=== PATIENT | female | born 1950 | race Asian ===

== ENCOUNTER 2017-11-23 09:02 | Emergency (ER) | payer MEDICARE, OTHER, SELFPAY ==
[2017-11-23] VITALS (10 sets, daily range): BP systolic 119–178; BP diastolic 53–86; PULSE 62–102; RESP 12–20; TEMP 36.6; O2SAT 92–100; BMI 27.2
[2017-11-23 10:03] LABS: Add Manual Diff / Slide Review NO; Eosinophils Percent Auto 5.7 % (2-4); Hematocrit 34.6 % (36-46); Hemoglobin 11.7 g/dL (12.0-16.0); Lymphocytes Percent Auto 21.8 % (25-40); Mean Corpuscular HGB Conc 33.7 % (30-36); Mean Corpuscular Hemoglobin 29.7 PG (26-34); Mean Corpuscular Volume 88.2 fL (80-100); Monocytes Percent Auto 5.9 % (3-14); Neutrophils Absolute Auto 6900 /uL (3000-5900); Neutrophils Percent Auto 65.6 % (50-75); Platelet Count 241 X10^3/uL (150-400); Red Blood Cell Count 3.93 X10^6/uL (4.0-5.2); Red Cell Distribution Width 13.1 % (11.6-14.8); White Blood Cell Count 10.5 X10^3/uL (4.5-11.0)
[2017-11-23 10:12] LABS: Alanine Aminotransferase 19 IU/L (9-52); Albumin 4.4 g/dL (3.5-5.0); Albumin Globulin Ratio 1.2 (1.0-2.8); Alkaline Phosphatase 71 U/L (38-126); Aspartate Aminotransferase 16 IU/L (14-36); BUN Creatinine Ratio 15.7 (6-22); Bilirubin Total 0.4 mg/dL (0.2-1.3); Blood Urea Nitrogen 33 mg/dL (7-17); Calcium 9.7 mg/dL (8.4-10.2); Carbon Dioxide 14 mmol/L (22-32); Chloride 114 mmol/L (98-107); Estimated Glomerular Filt Rate 23.4 mL/min (>60); Globulin 3.6 g/dL (1.7-4.1); Glucose 136 mg/dL (80-110); HEMOLYSIS < 15 (0-50); Lipase 558 U/L (23-300); Sodium 142 mmol/L (137-145)
[2017-11-23] MEDS: SODIUM CHLORIDE 0.9% 1,000 ML 150 ML IV (10:15)
[2017-11-23 10:24] LABS: Potassium 6.5 mmol/L (3.4-5.1)
--- NOTE | 2017-11-23 11:05 | DI.US.S_ITS ---
PROCEDURE: US ABDOMEN COMPLETE INDICATIONS: 67 year-old female with elevated lipase level, abdominal pain and nausea. TECHNIQUE: Real-time scanning was performed of the abdominal and retroperitoneal organs, with image documentation. COMPARISON: None. FINDINGS: Liver: Liver is normal in size and homogeneous in echotexture. Gallbladder: No gallstones or biliary sludge. Gallbladder wall thickness is normal. No pericholecystic fluid. Sonographic Banks's sign is present. Biliary ducts: Intrahepatic bile ducts are non-dilated. Extrahepatic bile duct caliber measures 6 mm. Normal is 6-7 mm or less in diameter, or 10 mm or less post-cholecystectomy. Pancreas: Visualized portions of the pancreas are sonographically normal. Spleen: Spleen is normal in size and homogeneous in echotexture. Kidneys: Kidneys are normal in size and echotexture. Right kidney measures 8.6 cm long; left kidney measures 7.9 cm long. No hydronephrosis or nephrolithiasis. No solid masses. Aorta: Visualized aorta is normal in caliber at less than 3 cm. Iliacs: Proximal common iliac arteries are normal in caliber at less than 2.5 cm. IVC: Intrahepatic inferior vena cava is patent. Miscellaneous: No free abdominal fluid. IMPRESSION: 1. No gallstones or biliary ductal dilation. Sonographic Banks's sign may raise the question of acalculous cholecystitis. 2. No peripancreatic fluid collections identified in the setting of acute pancreatitis. CT scan would have higher sensitivity for pancreatic evaluation. Dictated by: Ignacio Lazar M.D. on 11/23/2017 at 13:12 Approved by: Ignacio Lazar M.D. on 11/23/2017 at 13:15
[2017-11-23] MEDS: SODIUM CHLORIDE 0.9% 1,000 ML 1000 ML IV (11:42)
[2017-11-23 13:10] LABS: BUN Creatinine Ratio 16.5 (6-22); Blood Urea Nitrogen 28 mg/dL (7-17); Calcium 8.4 mg/dL (8.4-10.2); Carbon Dioxide 14 mmol/L (22-32); Chloride 118 mmol/L (98-107); Estimated Glomerular Filt Rate 29.9 mL/min (>60); Glucose 101 mg/dL (80-110); HEMOLYSIS < 15 (0-50); Sodium 143 mmol/L (137-145)
[2017-11-23 13:17] LABS: Potassium 6.4 mmol/L (3.4-5.1)
[2017-11-23] MEDS: FUROSEMIDE 40 MG/4 ML VIAL IV (14:08)
[2017-11-23] MEDS: SODIUM POLYSTYRENE SULFON/SORB 15 GM/60 ML CUP 30 GM PO (14:08)
[2017-11-23] MEDS: ALBUTEROL 2.5 MG/3 ML NEB 10 MG INH (14:08)
--- NOTE | 2017-11-23 15:02 | ED_ITS ---
HPI - Recheck/Abnormal Lab/Rx General Chief Complaint: Recheck/Abnormal Lab/Rx Stated Complaint: Told to come in r/t abnormal lab work Time Seen by Provider: 11/23/17 09:18 Source: patient and family Mode of arrival: ambulatory Limitations: no limitations History of Present Illness HPI narrative: Patient with history of hypertension and diabetes presents to the emergency department today at the request of her primary care provider. She had been feeling slightly ill since her returned from [place] early in October and has been seen twice now in the outpatient setting. Most recently they ordered some outpatient labs which [place] [address] and a lipase elevated in the 150-200 range. The patient had been doing with some epigastric pain, change in appetite and vomiting. Upon receipt of the labs her primary sent her into the emergency department for evaluation. Today she denies any pain nor fever or chills. She is not dizzy nor weak or lightheaded. She does get some nausea when she eats. complaint: abnormal lab Initial visit (ago): week(s) Description of abnormal result: as above Related Data Home Medications Medication Instructions Recorded Confirmed aspirin [Aspirin Low Dose] 81 mg PO DAILY 11/23/17 11/23/17 felodipine 10 mg PO DAILY 11/23/17 11/23/17 hydrochlorothiazide 25 mg PO DAILY 11/23/17 11/23/17 levothyroxine [Synthroid] 112 mcg PO DAILY 11/23/17 11/23/17 losartan 100 mg PO DAILY 11/23/17 11/23/17 metformin 1,000 mg PO BID 11/23/17 11/23/17 metoprolol succinate 25 mg PO BEDTIME 11/23/17 11/23/17 metoprolol succinate 50 mg PO QAM 11/23/17 11/23/17 potassium chloride [Klor-Con 10] 10 meq PO DAILY 11/23/17 11/23/17 simvastatin 40 mg PO DAILY 11/23/17 11/23/17 spironolactone 25 mg PO BID 11/23/17 11/23/17 Allergies Allergy/AdvReac Type Severity Reaction Status Date / Time celecoxib [From Celebrex] Allergy Unknown Verified 11/23/17 09:36 AIDEN Inhibitors AdvReac Unknown Verified 11/23/17 09:36 Review of Systems Review of Systems All systems reviewed & are unremarkable except as noted in HPI and below Constitutional Denies chills, Denies fever(s), Denies lethargy and Denies weakness Eyes Denies change in vision, Denies eye discharge, Denies irritation and Denies loss of vision ENT Ears, Nose, Mouth, and Throat: Denies change in voice, Denies neck pain and Denies sore throat Cardiovascular Denies chest pain, Denies irregular heart rhythm, Denies lightheadedness, Denies palpitations, Denies dyspnea, Denies dyspnea on exertion and Denies orthopnea Respiratory Denies cough, Denies dyspnea, Denies dyspnea on exertion and Denies wheezing Gastrointestinal Gastrointestinal: Denies abdominal pain, Denies change in bowel habits, Reports heartburn, Denies diarrhea, Reports nausea and Denies vomiting Genitourinary Denies hematuria, Denies flank pain, Denies urinary incontinence and Denies urinary urgency Musculoskeletal Denies neck pain Integumentary/Breasts Denies pruritus, Denies erythema, Denies rash and Denies wounds Neurologic Denies confusion, Denies loss of vision and Denies weakness Psychiatric Denies anxiety, Denies confusion, Denies depression, Denies homicidal ideation and Denies suicidal ideation Endocrine Denies palpitations Hematologic/Lymphatic Denies easy bruising Allergic/Immunologic Denies wheezing PFSH Medical History Diabetes (Acute) High blood pressure (Acute) High cholesterol (Acute) Surgical History H/O section (Acute) Social History Smoking Status: Never smoker Exam Initial Vital Signs Initial Vital Signs: Vital Signs Temperature 97.9 F 11/23/17 09:15 Pulse Rate 99 H 11/23/17 09:15 Respiratory Rate 16 11/23/17 09:15 Blood Pressure 174/54 H 11/23/17 09:15 Pulse Oximetry 99 11/23/17 09:15 Const General: cooperative and well developed Nutritional Appearance: well nourished Orientation: alert, awake, oriented x3 and not confused [facility] Head: normocephalic and atraumatic Ears: external ears normal and TM's normal bilaterally Nose: external nose normal and No nasal discharge Face and sinus: sinuses nontender, face symmetric, no sinus tenderness and No dry mucous membranes Mouth: oral mucosae normal and moist mucous membranes Teeth and gingiva: dentition normal Throat: tonsils normal and uvula midline Eyes General: appearance normal, both eyes and all related structures Eyelids: eyelids normal Conjunctivae: conjunctivae normal Sclera: sclerae normal Pupils: PERRL EOM: EOM intact bilaterally Neck Neck: normal visual inspection, trachea midline, No lymphadenopathy, No midline deformity and No JVD Lymphatic: No lymphedema Chest Chest: normal inspection of the chest Resp Effort & Inspection: normal respiratory effort, able to speak in complete sentences, no respiratory distress and no use of accessory muscles Auscultation: clear to auscultation bilaterally, no rales, no rhonchi and no wheezes Cardio Rate: regular rate Rhythm: regular rhythm Heart Sounds: no click, no gallops, no murmurs and no rubs Pulses: normal peripheral pulses GI Inspection: non-distended Palpation: soft, no hepatosplenomegaly, No guarding, No pulsatile mass and No tender Auscultation: normal bowel sounds Back/Spine/Pelvis Back: No CVA tenderness Cervical Spine: cervical ROM normal and No pain with cervical ROM Thoracic/Lumbar Spine: thoracic and lumbar spine normal to inspection Skin General: no rashes or lesions noted, No jaundice and No petechiae Neuro General: alert, oriented x3, gait normal and no focal motor deficits Speech: speech normal Extrem General: full ROM, no clubbing, cyanosis or edema, no pedal edema and no calf tenderness Psych Appearance: well kempt Mental Status: mental status grossly normal Attitude: cooperative Thought Content: normal and suicidality Judgment: judgment good Course Orders Ordered: ED Orders 11/23/17 09:51 Complete Blood Count AUTO DIFF Stat Comprehensive Metabolic Panel Stat Lipase Stat 11/23/17 10:26 EKG-12 Lead Stat 11/23/17 11:05 US abdomen complete Stat 11/23/17 12:53 Basic Metabolic Panel Stat 11/23/17 14:53 Potassium Stat Sodium Chloride (Normal Saline 0.9%) 1,000 mls @ 150 mls/hr IV CONT SIN Last Infusion: 11/23/17 11:40 Dose: 0 mls/hr Infusion: 11/23/17 10:23 Dose: 1,000 mls/hr Admin: 11/23/17 10:15 Dose: 150 mls/hr Discontinued Medications Albuterol (Ventolin) 10 mg INH NOW ONE Stop: 11/23/17 13:49 Last Admin: 11/23/17 14:08 Dose: 10 mg Furosemide (Lasix) 40 mg IV NOW ONE Stop: 11/23/17 13:49 Last Admin: 11/23/17 14:08 Dose: 40 mg Sodium Chloride (Normal Saline 0.9%) 1,000 mls @ 1,000 mls/hr IV BOLUS ONE Stop: 11/23/17 12:40 Last Infusion: 11/23/17 12:49 Dose: 0 mls/hr Admin: 11/23/17 11:42 Dose: 1,000 mls/hr Sodium Polystyrene Sulfonate (Kayexalate) 30 gm PO NOW ONE Stop: 11/23/17 13:49 Last Admin: 11/23/17 14:08 Dose: 30 gm Reevaluation(s) Reevaluation #1: patient continues to be asymptomatic. Reevaluation #2: repeat labs after fluids note minimal change in renal function and essentially no change in K. Patient remains asymptomatic. Initiation of typical hyperK treatment. No abnormalities on EKG. Vital Signs - 8 hr 11/23/17 09:15 11/23/17 11:15 11/23/17 11:51 Temperature 97.9 F Pulse Rate 99 H 63 98 H Respiratory Rate 16 14 Blood Pressure 174/54 H Blood Pressure [Left Arm] 156/59 H 142/82 H Pulse Oximetry 99 98 99 11/23/17 11:54 11/23/17 11:57 11/23/17 11:59 Temperature Pulse Rate 102 H 76 64 Respiratory Rate 12 12 Blood Pressure Blood Pressure [Left Arm] 151/78 H 122/86 H Pulse Oximetry 100 93 11/23/17 12:02 11/23/17 13:00 11/23/17 14:15 Temperature Pulse Rate 62 69 72 Respiratory Rate 12 18 14 Blood Pressure Blood Pressure [Left Arm] 119/60 155/54 H 171/53 H Pulse Oximetry 100 99 11/23/17 15:15 Temperature Pulse Rate 102 H Respiratory Rate 20 Blood Pressure Blood Pressure [Left Arm] 178/71 H Pulse Oximetry 92 MDM - Recheck/Abnormal Lab/Rx Medical Records Attestation: I reviewed the patient's medical records. Lab Data Attestation: I reviewed the patient's lab results. Result diagrams: 11/23/17 09:51 11/23/17 14:53 Lab Results 11/23/17 11/23/17 11/23/17 Range/Units 09:51 09:51 12:53 WBC 10.5 (4.5-11.0) X10^3/uL RBC 3.93 L (4.0-5.2) X10^6/uL Hgb 11.7 L (12.0-16.0) g/dL Hct 34.6 L (36-46) % MCV 88.2 (80-100) fL MCH 29.7 (26-34) PG MCHC 33.7 (30-36) % RDW 13.1 (11.6-14.8) % Plt Count 241 (150-400) X10^3/uL Neut % (Auto) 65.6 (50-75) % Lymph % (Auto) 21.8 L (25-40) % [place] % (Auto) 5.9 (3-14) % Eos % (Auto) 5.7 H (2-4) % Baso % (Auto) 1.0 (0-2) % Neut # (Auto) 6900 H (2303-3207) /uL Sodium 142 143 (137-145) mmol/L Potassium 6.5 H* 6.4 H* (3.4-5.1) mmol/L Chloride 114 H 118 H (98-107) mmol/L Carbon Dioxide 14 L 14 L (22-32) mmol/L BUN 33 H 28 H (7-17) mg/dL Creatinine 2.10 H 1.70 H (0.52-1.04) mg/dL Estimated GFR 23.4 L 29.9 L (>60) mL/min BUN/Creatinine Ratio 15.7 16.5 (6-22) Glucose 136 H 101 (80-110) mg/dL Calcium 9.7 8.4 (8.4-10.2) mg/dL Total Bilirubin 0.4 (0.2-1.3) mg/dL AST 16 (14-36) IU/L ALT 19 (9-52) IU/L Alkaline Phosphatase 71 (38-126) U/L Total Protein 8.0 (6.3-8.2) g/dL Albumin 4.4 (3.5-5.0) g/dL Globulin 3.6 (1.7-4.1) g/dL Albumin/Globulin Ratio 1.2 (1.0-2.8) Lipase 558 H (23-300) U/L 11/23/17 Range/Units 14:53 WBC (4.5-11.0) X10^3/uL RBC (4.0-5.2) X10^6/uL Hgb (12.0-16.0) g/dL Hct (36-46) % MCV (80-100) fL MCH (26-34) PG MCHC (30-36) % RDW (11.6-14.8) % Plt Count (150-400) X10^3/uL Neut % (Auto) (50-75) % Lymph % (Auto) (25-40) % [place] % (Auto) (3-14) % Eos % (Auto) (2-4) % Baso % (Auto) (0-2) % Neut # (Auto) (7341-4474) /uL Sodium (137-145) mmol/L Potassium 4.9 D (3.4-5.1) mmol/L Chloride (98-107) mmol/L Carbon Dioxide (22-32) mmol/L BUN (7-17) mg/dL Creatinine (0.52-1.04) mg/dL Estimated GFR (>60) mL/min BUN/Creatinine Ratio (6-22) Glucose (80-110) mg/dL Calcium (8.4-10.2) mg/dL Total Bilirubin (0.2-1.3) mg/dL AST (14-36) IU/L ALT (9-52) IU/L Alkaline Phosphatase (38-126) U/L Total Protein (6.3-8.2) g/dL Albumin (3.5-5.0) g/dL Globulin (1.7-4.1) g/dL Albumin/Globulin Ratio (1.0-2.8) Lipase (23-300) U/L Imaging Data US - abdomen: Radiologist's impression: PROCEDURE: US ABDOMEN COMPLETE INDICATIONS: 67 year-old female with elevated lipase level, abdominal pain and nausea. TECHNIQUE: Real-time scanning was performed of the abdominal and retroperitoneal organs, with image documentation. COMPARISON: None. FINDINGS: Liver: Liver is normal in size and homogeneous in echotexture. Gallbladder: No gallstones or biliary sludge. Gallbladder wall thickness is normal. No pericholecystic fluid. Sonographic Banks's sign is present. Biliary ducts: Intrahepatic bile ducts are non-dilated. Extrahepatic bile duct caliber measures 6 mm. Normal is 6-7 mm or less in diameter, or 10 mm or less post-cholecystectomy. Pancreas: Visualized portions of the pancreas are sonographically normal. Spleen: Spleen is normal in size and homogeneous in echotexture. Kidneys: Kidneys are normal in size and echotexture. Right kidney measures 8.6 cm long; left kidney measures 7.9 cm long. No hydronephrosis or nephrolithiasis. No solid masses. Aorta: Visualized aorta is normal in caliber at less than 3 cm. Iliacs: Proximal common iliac arteries are normal in caliber at less than 2.5 cm. IVC: Intrahepatic inferior vena cava is patent. Miscellaneous: No free abdominal fluid. IMPRESSION: 1. No gallstones or biliary ductal dilation. Sonographic Banks's sign may raise the question of acalculous cholecystitis. 2. No peripancreatic fluid collections identified in the setting of acute pancreatitis. CT scan would have higher sensitivity for pancreatic evaluation. Dictated by: Ignacio Lazar M.D. on 11/23/2017 at 13:12 Approved by: Ignacio Lazar M.D. on 11/23/2017 at 13:15 MDM Narrative Medical decision making narrative: Patient has been completely asymptomatic for the duration of her visit. Though she has an elevated lipase she denies any epigastric pain and has a normal ultrasound. She has had some decreased appetite and weight loss and was clinically dehydrated which would explain her elevated creatinine and which could surely contribute to her elevated potassium especially given use of diuretics and supplemental potassium. After fluids and typical treatment for hyperkalemia she has improved her potassium and is now at a normal range. We have given extensive bedside discussion and directions for follow-up and she has verbalized her understanding. She is eating and drinking without difficulty. Discharge Plan Departure Patient Disposition: Home, Self-Care Clinical Impression: Acute hyperkalemia, Elevated lipase Instructions: Dehydration Activity Restrictions/Additional Instructions: *You have been diagnosed with [ dehydration, hyperkalemia, elevated lipase ] *What to do: * do not take spironolactone or potassium. Otherwise take your regular medications Follow up with your doctor as soon as possible, you will need repeat labs on Saturday to evaluate your kidney function, pancreatic function, and potassium 1. Drink plenty of fluids with frequent small sips. 2. For the next 24 hours a clear liquid diet is advised. After that please employ a brat diet which would include bananas, rice, apples, toast. 3. Please return to the emergency Department for any worsening or persistent symptoms, such as increasing pain or fever. Prescriptions: No Action potassium chloride [Klor-Con 10] 10 mEq tablet extended release 10 meq PO DAILY RF: 0 metformin 1,000 mg tablet 1,000 mg PO BID RF: 0 metoprolol succinate 25 mg tablet extended release 24 hr 50 mg PO QAM RF: 0 aspirin [Aspirin Low Dose] 81 mg Tablet,Delayed Release (Dr/Ec) 81 mg PO DAILY RF: 0 spironolactone 25 mg Tablet 25 mg PO BID RF: 0 simvastatin 40 mg tablet 40 mg PO DAILY RF: 0 felodipine 10 mg tablet extended release 24 hr 10 mg PO DAILY RF: 0 hydrochlorothiazide 25 mg tablet 25 mg PO DAILY RF: 0 metoprolol succinate 25 mg tablet extended release 24 hr 25 mg PO BEDTIME RF: 0 losartan 100 mg tablet 100 mg PO DAILY RF: 0 levothyroxine [Synthroid] 112 mcg tablet 112 mcg PO DAILY RF: 0
[2017-11-23 15:15] LABS: HEMOLYSIS 32 (0-50); Potassium 4.9 mmol/L (3.4-5.1)
== END 2017-11-23 16:07 | disposition home or self-care (01) ==
PROVIDERS: Emergency Provider Emergency Medicine
DX: E87.5 Hyperkalemia (principal); R74.8 Abnormal levels of other serum enzymes
CPT/HCPCS: 36415; 36591; 76700; 80048; 80053; 81003; 83690; 84132; 85025; 93005; 96361; 96374; 99285; J1940; J7613

== ENCOUNTER → 2020-08-08 11:32 | Outpatient (CLI) | payer MEDICARE, OTHER, SELFPAY ==
[2020-08-08 12:59] LABS: COVID19 -Nasal RAPID Negative (Negative)
== END ==
PROVIDERS: Visit Provider Physician Assistant
DX: Z01.812 Encounter for preprocedural laboratory examination (principal); Z20.822 Contact with and (suspected) exposure to COVID-19
CPT/HCPCS: 87635; C9803

== ENCOUNTER 2020-08-10 09:51 | Day surgery (SDC) | payer MEDICARE, OTHER, SELFPAY ==
[2020-08-10] VITALS (7 sets, daily range): BP systolic 139–174; BP diastolic 57–74; PULSE 55–66; RESP 16–19; TEMP 36.3–36.7; O2SAT 96–100; BMI 29.4
--- NOTE | 2020-08-10 | PATH_ITS ---
[facility] Accession Number: [id number] . 01 Material submitted: . PART A: small bowel - SMALL BOWEL PART B: stomach - STOMACH . 01 Clinical history: . A: SMALL BOWEL BIOPSY X2 B: STOMACH BIOPSY X2 . 02 Diagnosis: A. Small Bowel, Biopsy: Mild active duodenitis; please see comment. Negative for granulomata, dysplasia or malignancy. . B. Stomach, Biopsy: Gastric body mucosa with no diagnostic abnormality. No evidence of Helicobacter organisms on H/E stain. Negative for intestinal metaplasia. Negative for dysplasia and malignancy. [facility] 08/12/2020 1025 Local . 02 Comment: Part A: The finding of mild active duodenitis raises a differential diagnosis including infection, drug/toxin-induced injury, and peptic duodenitis. . 02 Electronically signed: . Sherwin Garcia MD, PhD, Pathologist NPI- [id number] . 01 Gross description: . Part A: SMALL BOWEL: Received in formalin are 3 fragment(s) of bullock, soft tissue measuring 0.2 x 0.2 x 0.2 cm to 0.4 x 0.2 x 0.2 cm submitted entirely in 1 cassette(s) Part B: STOMACH: Received in formalin is 1 fragment(s) of bullock, soft tissue measuring 0.3 x 0.2 x 0.2 cm submitted entirely in 1 cassette(s) /JUAN 08/11/2020 1925 Local . 02 Pathologist provided ICD-10: K52.9, D64.9, K29.80 . 02 CPT . 830307, [id number] Performed at: [address], [place], [place] [id number] MD Eric Kilgore MD Phone: [phone] Performed at: [address] [facility] [address] [place] [id number] MD Shital Miles MD Phone: [phone]
--- NOTE | 2020-08-10 11:37 | PM.HP.1 ---
History of Present Illness History of Present Illness Date Patient Seen: 08/10/20 Chief complaint: SDC Narrative: FIt + anemia Patient History Medical History (Updated 12/08/17 @ 00:00 by ) Diabetes High blood pressure High cholesterol Surgical History (Updated 11/23/17 @ 10:29 by Domenica Dumont RN) H/O section Family & Social History Social History: household members spouse Tobacco & Substance use: Smoking Status Never smoker alcohol intake never alcohol intake frequency 0-2 drinks per day Substance Use Type does not use Meds Home Medications and Allergies Home Medications Medication Instructions Recorded Confirmed Type aspirin [Aspirin Low Dose] 81 mg PO DAILY 11/23/17 08/10/20 History felodipine 10 mg PO DAILY 11/23/17 08/10/20 History hydrochlorothiazide 25 mg PO DAILY 11/23/17 08/10/20 History levothyroxine [Synthroid] 112 mcg PO DAILY 11/23/17 08/10/20 History losartan 100 mg PO DAILY 11/23/17 08/10/20 History metoprolol succinate 25 mg PO BEDTIME 11/23/17 08/10/20 History metoprolol succinate 50 mg PO QAM 11/23/17 08/10/20 History simvastatin 40 mg PO DAILY 11/23/17 08/10/20 History felodipine 10 mg PO DAILY 08/10/20 08/10/20 History ferrous sulfate 325 mg PO DAILY 08/10/20 08/10/20 History insulin glargine [Lantus U-100 18 unit SUBCUT DAILY 08/10/20 08/10/20 History Insulin] Allergies Allergy/AdvReac Type Severity Reaction Status Date / Time celecoxib [From Celebrex] Allergy Unknown Verified 08/10/20 10:07 AIDEN Inhibitors AdvReac Unknown Verified 08/10/20 10:07 Exam Vital Signs (past 8 hours): - 08/10/20 10:23 Temperature 97.8 F Pulse Rate 59 L Respiratory Rate 18 Blood Pressure 174/74 H Pulse Oximetry 100 Oxygen Delivery Method Room Air Narrative Exam Narrative: Oropharynx free of lesions Chest clear to auscultation percussion Cardiac exam reveals no S3 or murmur Assessment & Plan Assessment & Plan narrative: Fit positive anemia, need for both EGD and colonoscopy to rule out source of blood loss anemia. Risks, benefits, alternatives have been explained.
--- NOTE | 2020-08-10 11:38 | PM.OP.ENDO ---
Operative Date/Time/Diagnoses Date of procedure: 08/10/20 Pre-op diagnosis: See indication and findings Procedure & Clinicians Study performed: EGD and colonoscopy Same procedure as scheduled: Yes Indications: FIT + anemia Surgeon: Raphael Lamar Procedure Notes Procedure in detail: After informed consent was obtained the patient was placed in left lateral decubitus position. An the video upper scope was placed the oropharynx and with the patient still felt in the esophagus. The esophagus stomach duodenum were carefully examined. On withdrawal, retroflexed view the GE junction was performed. The scope was removed. The patient tolerated procedure well. At this point the patient was turned of the colonoscope substituted. This was easily passed to the cecum. Preparation was good. On slow withdrawal mucosa was carefully examined. The scope was removed. The patient tolerated procedure well. Blood loss none Complications none Sedation Total sedation time Fentanyl 100 micro g Versed 4 mg IV titration Findings EGD 1. Normal esophagus 2. Stomach with a few very small scattered erosions with hematin flecks. Biopsy taken to rule out Helicobacter. 3. Normal duodenal bulb and sweep other than mild melanosis. Biopsies taken to rule out celiac Colonoscopy 1. Normal colonoscopy to cecum Will await biopsy findings but she almost certainly should have a PillCam to evaluate her small bowel for source of bleeding.
[2020-08-10] MEDS: fentaNYL 250 MCG/5 ML INJ IV (11:45)
[2020-08-10] MEDS: MIDAZOLAM 5 MG/5 ML VIAL IV (11:57)
== END 2020-08-10 12:54 | disposition home or self-care (01) ==
PROVIDERS: PCP Internal Medicine; Referring Provider Internal Medicine Gastroenterology; Visit Provider Internal Medicine Gastroenterology
PROC: 0DJ08ZZ Inspection of Upper Intestinal Tract, Via Natural or Artificial Opening Endoscopic (ICD-10-PCS; CPT 43235; principal; 2020-08-10 11:00)
PROC: 0DJD8ZZ Inspection of Lower Intestinal Tract, Via Natural or Artificial Opening Endoscopic (ICD-10-PCS; CPT 45378; 2020-08-10 11:00)
DX: R19.5 Other fecal abnormalities (principal); D64.9 Anemia, unspecified; I12.9 Hypertensive chronic kidney disease with stage 1 through stage 4 chronic kidney disease, or unspecified chronic kidney disease; E11.22 Type 2 diabetes mellitus with diabetic chronic kidney disease; N18.9 Chronic kidney disease, unspecified; Z79.4 Long term (current) use of insulin; K29.80 Duodenitis without bleeding
CPT/HCPCS: 43239; 45378; J2250; J3010

== ENCOUNTER 2023-07-15 15:32 | Emergency (ER) | payer MEDICARE, OTHER, SELFPAY ==
[2023-07-15] VITALS (25 sets, daily range): BP systolic 132–170; BP diastolic 60–94; PULSE 49–57; RESP 5–31; TEMP 36.6–36.8; O2SAT 96–99; BMI 26.2
--- NOTE | 2023-07-15 16:16 | DI.RAD.S_ITS ---
PROCEDURE: XR CHEST 1V INDICATIONS: Shortness of breath TECHNIQUE: One view of the chest was acquired. COMPARISON: None. FINDINGS: Surgical changes and devices: None. Lungs and pleura: Mild perihilar and basilar predominant reticulonodular pulmonary opacity. No pleural effusions or pneumothorax. Mediastinum: Mediastinal contours appear normal. Heart size is normal. Bones and chest wall: No suspicious bony lesions. Overlying soft tissues appear unremarkable. IMPRESSION: Mild edema versus atypical pneumonia. Dictated by: Shelly Aguilera M.D. on 07/15/2023 at 16:37 Approved by: Shelly Aguilera M.D. on 07/15/2023 at 16:37
[2023-07-15 16:46] LABS: Bacteria Urine Occasional (0-1); Culture Indicated Urine Specimen Cultured; Hyaline Casts Urine 0-1/LPF; Mucus Urine 1+ (Negative); RBC Urine 0-1/HPF (0-5/HPF); Squamous Epithelial Cell Urine 1-5 /HPF (0-5/HPF); Urine Volume 10mL (spun); WBC Urine 0-1/HPF (0-5/HPF)
[2023-07-15 16:54] LABS: Add Manual Diff / Slide Review NO; Basophils Absolute Auto 0 /uL (0-100); Basophils Percent Auto 0.5 % (0-2); Eosinophils Absolute Auto 300 /uL (0-450); Eosinophils Percent Auto 3.8 % (2-4); Hematocrit 25.5 % (36-46); Hemoglobin 8.5 g/dL (12.0-16.0); Lymphocytes Absolute Auto 1300 /uL (1100-4500); Lymphocytes Percent Auto 14.6 % (25-40); Mean Corpuscular HGB Conc 33.4 % (30-36); Mean Corpuscular Hemoglobin 31.8 PG (26-34); Mean Corpuscular Volume 95.3 fL (80-100); Monocytes Absolute Auto 800 /uL (0-900); Monocytes Percent Auto 8.8 % (3-14); Neutrophils Absolute Auto 6400 /uL (1500-7000); Neutrophils Percent Auto 72.3 % (50-75); Platelet Count 145 X10^3/uL (150-400); Red Blood Cell Count 2.68 X10^6/uL (4.0-5.2); Red Cell Distribution Width 16.2 % (11.6-14.8); White Blood Cell Count 8.9 X10^3/uL (4.5-11.0)
[2023-07-15 17:00] LABS: Lactate (Lactic Acid) 1.5 mmol/L (0.7-2.1)
[2023-07-15 17:01] LABS: Alanine Aminotransferase 172 IU/L (<35); Albumin 3.9 g/dL (3.5-5.0); Albumin Globulin Ratio 1.3 (1.0-2.8); Alkaline Phosphatase 136 U/L (38-126); Aspartate Aminotransferase 165 IU/L (14-36); BUN Creatinine Ratio 24.6 (6-22); Bilirubin Total 0.8 mg/dL (0.2-1.3); Blood Urea Nitrogen 104 mg/dL (7-17); Calcium 9.1 mg/dL (8.4-10.2); Carbon Dioxide 19 mmol/L (22-32); Chloride 96 mmol/L (98-107); Estimated Glomerular Filt Rate 10 mL/min (>60); Globulin 3.1 g/dL (1.7-4.1); Glucose 133 mg/dL (80-110); HEMOLYSIS < 15 (0-50); Potassium 4.4 mmol/L (3.4-5.1); Sodium 128 mmol/L (137-145)
[2023-07-15 17:23] LABS: Influenza A - CEPHEID Flu A NEGATIVE (NEGATIVE); Influenza B - CEPHEID Flu B NEGATIVE (NEGATIVE); Respiratory Syncytial Virus Negative (Negative)
[2023-07-15 17:25] LABS: NT-proBNP (BNP-Adult 18+) 32500 pg/mL (<125)
[2023-07-15 17:31] LABS: COVID-19 CEPHEID 4-PLEX PCR Negative (Negative)
--- NOTE | 2023-07-15 17:46 | PC.NURSE ---
Pt came to the emergency dept today with her daughter because she has been having ongoing worsening chest pain and SOB. Pt reports that her son suddenly recently and all of the family members that she has been surrounded by have just recently returned to their homes. Pt reports that it has been very difficult to move on with life since her son . Pt states that she is having some SOB and cramping cp that she rates as a 5\10. Daughter notes that it has been challenging to help her mom perform ADLs and they have had to force her to eat and drink. Pt states that she is very sad all the time. Pt a&ox4. UNPAID INTERN intact.
--- NOTE | 2023-07-15 17:54 | ED_ITS ---
HPI - SOB/Dyspnea General Chief Complaint: Shortness of Breath/Dyspnea Stated Complaint: SOB, Time Seen by Provider: 07/15/23 17:49 Source: patient Mode of arrival: Ambulatory Limitations: no limitations History of Present Illness HPI Narrative: Patient is a 73-year-old female history of chronic kidney disease, diabetes hypertension hyperlipidemia, anemia presenting today with increasing shortness of breath. For about the last 5-6 days she has had increasing shortness of breath with exertion some mild orthopnea. No fever chills or cough. Daughter at bedside reports that her brother of a heart attack on June 23 [address] was buried on the she has taken his very hard. She also got an RSV vaccine last week as well she has been feeling very weak and fatigued. Patient reports that he has been drinking lots of water. She does take an iron pill as well for her anemia. She has not noticed any bright red stool but she does have some black stool sometimes. She is denying any chest pain abdominal pain nausea vomiting dizziness lightheadedness or passing out. Related Data Home Medications Medication Instructions Recorded Confirmed aspirin 81 mg tablet,delayed 81 mg PO DAILY 11/23/17 08/10/20 release (Mirian Low Dose Aspirin) felodipine 10 mg tablet,extended 10 mg PO DAILY 11/23/17 08/10/20 release 24 hr hydrochlorothiazide 25 mg tablet 25 mg PO DAILY 11/23/17 08/10/20 levothyroxine 112 mcg tablet 112 mcg PO DAILY 11/23/17 08/10/20 losartan 100 mg tablet 100 mg PO DAILY 11/23/17 08/10/20 metoprolol succinate 25 mg 25 mg PO BEDTIME 11/23/17 08/10/20 tablet,extended release 24 hr metoprolol succinate 25 mg 50 mg PO QAM 11/23/17 08/10/20 tablet,extended release 24 hr simvastatin 40 mg tablet 40 mg PO DAILY 11/23/17 08/10/20 felodipine 10 mg tablet,extended 10 mg PO DAILY 08/10/20 08/10/20 release 24 hr ferrous sulfate 325 mg (65 mg 325 mg PO DAILY 08/10/20 08/10/20 iron) tablet insulin glargine 100 unit/mL 18 unit SUBCUT DAILY 08/10/20 08/10/20 subcutaneous cartridge Allergies Allergy/AdvReac Type Severity Reaction Status Date / Time celecoxib [From Celebrex] Allergy Unknown Verified 08/10/20 10:07 AIDEN Inhibitors AdvReac Unknown Verified 08/10/20 10:07 Patient History Medical History High cholesterol Diabetes High blood pressure Surgical History H/O section Social History household members: spouse Smoking Status: Never smoker alcohol intake: never Smoking Status: Never smoker alcohol intake frequency: 0-2 drinks per day Substance Use Type: does not use Exam Initial Vital Signs Initial Vital Signs: Vital Signs Temperature 98.2 F 07/15/23 16:12 Pulse Rate 53 L 07/15/23 16:12 Respiratory Rate 18 07/15/23 16:12 Blood Pressure 170/67 H 07/15/23 16:12 Pulse Oximetry 99 07/15/23 16:12 Oxygen Delivery Method Room Air 07/15/23 16:12 GENERAL: Alert pleasant 73-year-old female and in no acute distress. HEENT: Head atraumatic,EOMI, pupils reactive, face symmetric, moist mucous membranes CARDIOVASCULAR: Regular rate and rhythm without murmurs, rubs or gallops. RESPIRATORY: Mild tachypnea but no obvious rales or rhonchi ABDOMEN: Soft, nontender. Normoactive bowel sounds all 4 quadrants. No guarding or rebound. RECTAL: Guaiac-negative EXTREMITIES: Normal range of motion, no clubbing or edema. Neurovascularly intact NEUROLOGICAL: Alert and oriented x4 SKIN: Warm, dry, no laceration, no petechiae, no rashes or lesions. Course Orders Ordered: ED Orders 07/15/23 20:38 Hemoglobin and Hematocrit Stat PRBC [Packed Cells] Stat Type and Screen Stat Discontinued Medications Aspirin (Aspirin 81 Mg Chew Tab) 324 mg PO NOW ONE Stop: 07/15/23 18:08 Last Admin: 07/15/23 18:32 Dose: 324 mg Documented By: MPO Furosemide (Furosemide 40 Mg/4 Ml Vial) 40 mg IV NOW ONE Stop: 07/15/23 18:08 Last Admin: 07/15/23 18:32 Dose: 40 mg Documented By: MPO Heparin Sodium (Porcine) (Heparin 5,000 Unit/Ml Vial) 3,550 unit 60 unit/kg (3550 unit) IV NOW ONE Stop: 07/15/23 17:59 Last Admin: 07/15/23 18:32 Dose: 3,550 unit Documented By: DEVORA Heparin Sodium/Dextrose (Heparin Drip) 25,000 unit in 500 mls @ 14.152 mls/hr IV CONT SIN; Protocol Last Titration: 07/15/23 20:41 Dose: 0 units/kg/hr, 0 mls/hr Documented By: RUSLAN Co-signed By: ADARSH Admin: 07/15/23 18:30 Dose: 12 units/kg/hr, 14.152 mls/hr Documented By: DEVORA Co-signed By: HÉCTOR Vital Signs Vital signs: Vital Signs - 8 hr 07/15/23 21:30 07/15/23 21:30 07/15/23 21:54 Temperature 97.9 F Pulse Rate 57 L 54 L Respiratory Rate 23 18 Blood Pressure 136/87 152/65 H Pulse Oximetry 98 Oxygen Delivery Method Room Air 07/15/23 21:54 07/15/23 21:54 07/15/23 22:00 Temperature Pulse Rate 55 L 54 L Respiratory Rate 31 H 23 Blood Pressure 152/65 H Pulse Oximetry 98 97 Oxygen Delivery Method Room Air 07/15/23 22:01 07/15/23 22:01 07/15/23 22:09 Temperature 97.8 F Pulse Rate 56 L 53 L Respiratory Rate 26 H 20 Blood Pressure 150/65 H 139/61 Pulse Oximetry 98 Oxygen Delivery Method Room Air 07/15/23 22:10 07/15/23 22:10 07/15/23 22:30 Temperature Pulse Rate 54 L Respiratory Rate 22 Blood Pressure 139/61 147/65 H Pulse Oximetry 98 Oxygen Delivery Method 07/15/23 22:30 07/15/23 23:00 07/15/23 23:01 Temperature Pulse Rate 52 L 54 L 52 L Respiratory Rate 21 23 30 H Blood Pressure Pulse Oximetry 98 97 98 Oxygen Delivery Method Room Air 07/15/23 23:01 07/15/23 23:58 Temperature 98.0 F Pulse Rate 55 L Respiratory Rate 22 Blood Pressure 162/68 H 139/94 H Pulse Oximetry 98 Oxygen Delivery Method Room Air MDM - SOB/Dyspnea Lab Data 07/15/23 20:38 07/15/23 16:36 Labs: Lab Results 07/15/23 07/15/23 07/15/23 Range/Units 16:30 16:36 19:00 WBC 8.9 (4.5-11.0) X10^3/uL RBC 2.68 L (4.0-5.2) X10^6/uL Hgb 8.5 L (12.0-16.0) g/dL Hct 25.5 L (36-46) % MCV 95.3 (80-100) fL MCH 31.8 (26-34) PG MCHC 33.4 (30-36) % RDW 16.2 H (11.6-14.8) % Plt Count 145 L (150-400) X10^3/uL Neut % (Auto) 72.3 (50-75) % Lymph % (Auto) 14.6 L (25-40) % [place] % (Auto) 8.8 (3-14) % Eos % (Auto) 3.8 (2-4) % Baso % (Auto) 0.5 (0-2) % Neut # (Auto) 6400 (9182-8403) /uL Lymph # (Auto) 1300 (4595-5422) /uL [place] # (Auto) 800 (0-900) /uL Eos # (Auto) 300 (0-450) /uL Baso # (Auto) 0 (0-100) /uL APTT 36 (25.1-36.5) SECONDS Sodium 128 L (137-145) mmol/L Potassium 4.4 (3.4-5.1) mmol/L Chloride 96 L (98-107) mmol/L Carbon Dioxide 19 L (22-32) mmol/L BUN 104 H (7-17) mg/dL Creatinine 4.23 H (0.52-1.04) mg/dL Estimated GFR 10 L (>60) mL/min BUN/Creatinine Ratio 24.6 H (6-22) Glucose 133 H (80-110) mg/dL Lactate 1.5 (0.7-2.1) mmol/L Calcium 9.1 (8.4-10.2) mg/dL Total Bilirubin 0.8 (0.2-1.3) mg/dL AST 165 H (14-36) IU/L ALT 172 H (<35) IU/L Alkaline Phosphatase 136 H (38-126) U/L Troponin I 1.500 H* (0.01-0.034) ng/mL NT-Pro-B Natriuret Pep 82344 H (<125) pg/mL Total Protein 7.0 (6.3-8.2) g/dL Albumin 3.9 (3.5-5.0) g/dL Globulin 3.1 (1.7-4.1) g/dL Albumin/Globulin Ratio 1.3 (1.0-2.8) Urine Color Yellow Urine Appearance Clear Urine pH 5.5 (4.5-8.0) Ur Specific [place] 1.010 (1.000-1.035) Urine Protein Negative (Negative) Urine Glucose (UA) Negative (Negative) g/dL Urine Ketones Negative (NEGATIVE) Urine Occult Blood Negative (Negative) Urine Nitrate Negative (Negative) Urine Bilirubin Negative (NEGATIVE) Urine Urobilinogen 0.2 (0.2) E.U./dL Ur Leukocyte Esterase Negative (NEGATIVE) Urine RBC 0-1/hpf None seen (0-5/HPF) Urine WBC 0-1/hpf None seen (0-5/HPF) Ur Squamous Epith Cells 1-5 /hpf 0-1 /hpf (0-5/HPF) Urine Bacteria Occasional (0-1) None seen (None) Hyaline Casts 0-1/lpf (None) Urine Mucus 1+ H (Negative) Ur Culture Indicated? Specimen cultured Cult not indicated Vol Urine Centrifuged 10ml (spun) 10ml (spun) SARS-CoV-2 (PCR) Negative (Negative) Influenza A (RT-PCR) Flu a negative (NEGATIVE) Influenza B (RT-PCR) Flu b negative (NEGATIVE) RSV (PCR) Negative (Negative) Blood Type Antibody Screen Crossmatch 07/15/23 07/15/23 Range/Units 19:30 20:38 WBC (4.5-11.0) X10^3/uL RBC (4.0-5.2) X10^6/uL Hgb 7.8 L (12.0-16.0) g/dL Hct 23.2 L (36-46) % MCV (80-100) fL MCH (26-34) PG MCHC (30-36) % RDW (11.6-14.8) % Plt Count (150-400) X10^3/uL Neut % (Auto) (50-75) % Lymph % (Auto) (25-40) % [place] % (Auto) (3-14) % Eos % (Auto) (2-4) % Baso % (Auto) (0-2) % Neut # (Auto) (5230-2444) /uL Lymph # (Auto) (7756-8312) /uL [place] # (Auto) (0-900) /uL Eos # (Auto) (0-450) /uL Baso # (Auto) (0-100) /uL APTT (25.1-36.5) SECONDS Sodium (137-145) mmol/L Potassium (3.4-5.1) mmol/L Chloride (98-107) mmol/L Carbon Dioxide (22-32) mmol/L BUN (7-17) mg/dL Creatinine (0.52-1.04) mg/dL Estimated GFR (>60) mL/min BUN/Creatinine Ratio (6-22) Glucose (80-110) mg/dL Lactate (0.7-2.1) mmol/L Calcium (8.4-10.2) mg/dL Total Bilirubin (0.2-1.3) mg/dL AST (14-36) IU/L ALT (<35) IU/L Alkaline Phosphatase (38-126) U/L Troponin I 1.320 H* (0.01-0.034) ng/mL NT-Pro-B Natriuret Pep (<125) pg/mL Total Protein (6.3-8.2) g/dL Albumin (3.5-5.0) g/dL Globulin (1.7-4.1) g/dL Albumin/Globulin Ratio (1.0-2.8) Urine Color Urine Appearance Urine pH (4.5-8.0) Ur Specific [place] (1.000-1.035) Urine Protein (Negative) Urine Glucose (UA) (Negative) g/dL Urine Ketones (NEGATIVE) Urine Occult Blood (Negative) Urine Nitrate (Negative) Urine Bilirubin (NEGATIVE) Urine Urobilinogen (0.2) E.U./dL Ur Leukocyte Esterase (NEGATIVE) Urine RBC (0-5/HPF) Urine WBC (0-5/HPF) Ur Squamous Epith Cells (0-5/HPF) Urine Bacteria (None) Hyaline Casts (None) Urine Mucus (Negative) Ur Culture Indicated? Vol Urine Centrifuged SARS-CoV-2 (PCR) (Negative) Influenza A (RT-PCR) (NEGATIVE) Influenza B (RT-PCR) (NEGATIVE) RSV (PCR) (Negative) Blood Type O Positive Antibody Screen Negative Crossmatch See Detail Urine Dip Bedside Urine Glucose Negative Bedside Urine Bilirubin - Negative Bedside Urine Ketone - Negative Urine Specific [place] 1.015 Bedside Urine Occult Blood - Negative Bedside Urine pH 5.0 Bedside Urine Protein - Negative Bedside Urine Urobilinogen - Negative Bedside Urine Nitrite - Negative Bedside Urine Leukocytes +/- 15 Esterase Imaging Data Chest x-ray: Radiologist's Impression: Mild edema versus atypical pneumonia ECG Data Interpretation: EKG number 1 sinus rhythm rate 58 [place] interval 172 QRS 76, QTC 426 T-wave inversion noted in V2 with Q-waves in V1 and V2 no ST elevation or depression EKG 2. No ST changes sinus rhythm rate 54 MDM Narrative Medical decision making narrative: Patient 73-year-old female history of chronic kidney disease anemia hypertension presenting today with about 1 week of increasing shortness of breath. She has had significant life stressors. She has not had any sort of chest pain. Feeling just overall weak. Blood Work has been reviewed hemoglobin 8.5, hematocrit 25.5 with repeat 7.8 and 23.2, sodium 128, potassium 4.4, chloride 96, bicarb 19, BUN 104, creatinine 4.2, glucose 133, lactate 1.5, AST 165, ALT 172, total bilirubin 0.8, troponin 1.5 with repeat 1.32 with BNP [id number] Chest x-ray mild edema Records from Nephrology have been found and reviewed does report baseline creatinine of 3.2, previously 2.5 now today 4.2. She does have history of anemia goal was to keep her hemoglobin greater greater than 11.5 but I do not see what her hemoglobin levels were previously she is anemic today without evidence of bleeding. She is having signs and symptoms consistent with congestive heart failure. She has a BNP elevation of 3200 with an x-ray that does show some pulmonary edema. Troponin is positive with a level of NSTEMI 1.5 with a repeat of 1.3. 2030 cardiology at [facility] updated on patient's symptoms test results. States that unlikely needs a heparin drip if not having any chest pain and with anemia would cautious. Recommend stopping the heparin drip. Thinks more of a congestive heart failure picture. Recommends admitting to hospitalist [phone] Dr. Arora, hospitalist at [facility] updated patient's symptoms test results and accepts however likely able to be transferred tonight most likely tomorrow. Patient initially started on heparin drip it was on for 2 hours. However after talking with Cardiology agreed to stop. Repeat hemoglobin 7.8 hematocrit 23.2, without hemodynamic instability or evidence of hemorrhage. She is given [address] [facility]'s [facility] test results kindly accepts patient. Patient will be transferred later this evening. She is diuresed 1 L of urine with 40 mg of Lasix. She reports that she is feeling significantly better. Patient has been drinking large amounts of water which may explain some fluid overload and sodium of 128. It is unclear how much she has actually been drinking but both she and family report a lot. Critical Care Time Critical Care Time Critical Care Time: Yes Total Critical Care Time: 60 Attestation: The high probability of a clinically significant, sudden or life threatening deterioration of the [cardiovascular] system(s) required my full and direct attention, intervention and personal management. The aggregate critical care time was 60 minutes. This time is in addition to time spent performing reported procedures but includes the following: [x] Data Review and interpretation [x] Patient assessment and monitoring of vital signs [x] Documentation [x] Medication orders and management Discharge Plan Departure Patient Disposition: [facility] Clinical Impression: RAÚL (acute kidney injury), CHF (congestive heart failure), Anemia, Acute non-ST elevation myocardial infarction (NSTEMI) Prescriptions: No Action metoprolol succinate 25 mg tablet extended release 24 hr 50 mg PO QAM aspirin [Mirian Low Dose Aspirin] 81 mg Tablet,Delayed Release (Dr/Ec) 81 mg PO DAILY simvastatin 40 mg tablet 40 mg PO DAILY felodipine 10 mg tablet extended release 24 hr 10 mg PO DAILY hydrochlorothiazide 25 mg tablet 25 mg PO DAILY metoprolol succinate 25 mg tablet extended release 24 hr 25 mg PO BEDTIME losartan 100 mg tablet 100 mg PO DAILY levothyroxine 112 mcg tablet 112 mcg PO DAILY ferrous sulfate 325 mg (65 mg iron) Tablet 325 mg PO DAILY felodipine 10 mg tablet extended release 24 hr 10 mg PO DAILY insulin glargine 100 unit/mL Cartridge 18 unit SUBCUT DAILY Referrals: Darrell Kidd MD [Primary Care Provider] -
[2023-07-15] MEDS: HEPARIN DRIP 25,000 UNIT/500 ML IV.SOLN 14.152 UNIT IV (18:30)
[2023-07-15] MEDS: FUROSEMIDE 40 MG/4 ML VIAL IV (18:32)
[2023-07-15] MEDS: HEPARIN 5,000 UNIT/ML VIAL 3550 UNIT IV (18:32)
[2023-07-15] MEDS: ASPIRIN 81 MG CHEW TAB 324 MG PO (18:32)
--- NOTE | 2023-07-15 18:52 | PC.NURSE ---
Transfer requests [facility] - no beds [facility] - not beds put on waitlist - packet faxed and images pushed [facility]/ [facility]- no beds (3 day wait ) on waitlist - face sheet faxed and images pushed [facility]- has beds [phone] face sheet faxed and images pushed.
[2023-07-15 19:08] LABS: Appearance Urine UA CLEAR; Bilirubin Urine UA NEGATIVE (NEGATIVE); Color Urine UA YELLOW; Glucose Urine UA NEGATIVE (Negative); Ketones Urine UA NEGATIVE (NEGATIVE); Leukocyte Esterase Urine UA NEGATIVE (NEGATIVE); Nitrite Urine UA NEGATIVE (Negative); Occult Blood Urine UA NEGATIVE (Negative); Protein Urine UA NEGATIVE (Negative); Urobilinogen Urine UA 0.2 E.U./dL (0.2)
[2023-07-15 19:15] LABS: pH Urine UA 5.5 (4.5-8.0)
[2023-07-15 19:17] LABS: Bacteria Urine None Seen; Culture Indicated Urine Cult Not Indicated; RBC Urine None Seen (0-5/HPF); Squamous Epithelial Cell Urine 0-1 /HPF (0-5/HPF); Urine Volume 10mL (spun); WBC Urine None Seen (0-5/HPF)
[2023-07-15 19:25] LABS: PTT Partial Thromboplastin Tim 36 SECONDS (25.1-36.5)
[2023-07-15 20:46] LABS: Hematocrit 23.2 % (36-46); Hemoglobin 7.8 g/dL (12.0-16.0)
== END 2023-07-16 00:05 | disposition short-term general hospital (02) ==
PROVIDERS: Emergency Medicine; Emergency Provider Emergency Medicine; PCP Internal Medicine
DX: N17.9 Acute kidney failure, unspecified (principal); I50.9 Heart failure, unspecified; D64.9 Anemia, unspecified; I21.4 Non-ST elevation (NSTEMI) myocardial infarction; Z20.822 Contact with and (suspected) exposure to COVID-19
CPT/HCPCS: 0241U; 36415; 36430; 71045; 80053; 81001; 81003; 81015; 83605; 83880; 84484; 85014; 85018; 85025; 85730; 86850; 86900; 86901; 87086; 93005; 96365; 96366; 96375; 99285; 99291; P9016; J1644; J1940